=== PATIENT | female | born 2000 | race Caucasian/White ===

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

== ENCOUNTER → 2020-01-20 | Outpatient (CLI) | payer OTHER | END | disposition home or self-care (01) | LOC: LAB SHORT 13:18 → LAB EV 13:18 | DX: J03.90 Acute tonsillitis, unspecified (principal) | CPT/HCPCS: 87081 ==

== ENCOUNTER 2020-12-28 21:12 | Emergency (ER) | payer OTHER ==
[~2020-12-28] VITALS: Ht 160 cm; Wt 113.4 kg
[2020-12-29] MEDS ORDERED: ONDA4ODT MM (01:19)
== END 2020-12-29 01:40 | disposition home or self-care (01) ==
LOC: ER 21:12
DX: A08.4 Viral intestinal infection, unspecified (principal); J45.909 Unspecified asthma, uncomplicated; Z91.040 Latex allergy status; Z79.52 Long term (current) use of systemic steroids; Z79.899 Other long term (current) drug therapy; Z20.822 Contact with and (suspected) exposure to COVID-19
CPT/HCPCS: 99283; A9270

== ENCOUNTER 2021-07-09 20:17 | Emergency (ER) | payer SELFPAY ==
[~2021-07-09] VITALS: Ht 160 cm; Wt 127.0 kg
[~2021-07-09 20:17] MED LIST changes: +ONDA4ODT MM
== END 2021-07-09 20:30 | disposition home or self-care (01) ==
LOC: ER 20:17
DX: U07.1 COVID-19 (principal); Z91.040 Latex allergy status
CPT/HCPCS: 99283

== ENCOUNTER 2021-07-13 14:21 | Inpatient (IN) | payer SELFPAY ==
[~2021-07-13] VITALS: Ht 160 cm; Wt 127.0 kg
[2021-07-13 14:49] LABS: BASOPHILS ABSOLUTE AUTO 0.01 K/mm3 (0.00-0.23); BASOPHILS PERCENT AUTO 0 % (0-2); EOSINOPHILS PERCENT AUTO 0 % (0-6); Hematocrit 34.1 % (33.0-51.0); Hemoglobin 10.3 g/dL (11.5-16.0); IMMATURE GRAN ABSOLUTE AUTO 0.01 K/mm3 (0.00-0.10); IMMATURE GRAN PERCENT AUTO 0 % (0-1); LYMPHOCYTES ABSOLUTE AUTO 1.17 K/mm3 (0.84-5.20); LYMPHOCYTES PERCENT AUTO 21 % (21-46); MONOCYTES ABSOLUTE AUTO 0.26 K/mm3 (0.16-1.47); MONOCYTES PERCENT AUTO 5 % (4-13); Mean Corpuscular HGB 22.2 pg (26.0-34.0); Mean Corpuscular HGB Conc 30.2 g/dL (31.5-36.5); Mean Corpuscular Volume 74 fL (80-100); Mean Platelet Volume 9.9 fL (9.1-12.4); NEUTROPHILS ABSOLUTE AUTO 4.07 K/mm3 (1.96-9.15); NEUTROPHILS PERCENT AUTO 74 % (41-73); Platelet Count 239 K/mm3 (150-400); RDW Coefficient Variation 16.6 % (11.7-14.2); RDW Standard Deviation 43.8 fL (35.1-46.3); Red Blood Cell Count 4.63 M/mm3 (3.80-5.20); White Blood Cell Count 5.52 K/mm3 (4.00-11.30)
[2021-07-13 15:08] LABS: Alanine Aminotransfer (ALT/SGP 47 U/L (12-78); Albumin, Blood 2.6 g/dL (3.4-5.0); Albumin/Globulin Ratio 0.6 (0.8-1.8); Alk Phos 94 U/L (50-136); Anion Gap 8 mmol/L (6-16); Aspartate Aminotrans (AST/SGOT 37 U/L (12-37); Bilirubin, Total 0.1 mg/dL (0.1-1.0); Blood Urea Nitrogen 7 mg/dL (8-24); Bun/Creatinine Ratio 12.2 (12.0-20.0); CO2, Blood 24 mmol/L (21-32); Calcium, Blood 8.3 mg/dL (8.5-10.1); Chloride, Blood 106 mmol/L (98-108); Creatinine, Blood 0.57 mg/dL (0.40-1.00); Globulin, Blood 4.6 g/dL (2.2-4.0); Glomerular Filtration Rate >60 (60-); Glucose, Blood 133 mg/dL (70-99); Potassium, Blood 3.8 mmol/L (3.5-5.5); Sodium, Blood 138 mmol/L (136-145); Total Protein, Blood 7.2 g/dL (6.4-8.2); Troponin I <0.015 ng/mL (0.000-0.040)
--- NOTE | 2021-07-14 03:27 | NUR ---
SHIFT SUMMARY NO ACUTE CHANGES TO REPORT THIS SHIFT. PT CHANGE OF SHIFT ADMIT. COVID POSITIVE, SHE IS DOING WELL ON 4L O2, SOB WITH EXERTION. RESP E/U AT REST. NONPRODUCTIVE COGESTED COUGH. SHE REPORTS NO CHANGE IN APPETITIE AND DENIES N/V. SHE HAS BEEN INDEPENDENT IN THE ROOM, SLEPT MOST OF THE NIGHT. BED IN LOWEST POSITION, CALL LIGHT WITHIN REACH.
[2021-07-14 06:03] LABS: Hematocrit 36.2 % (33.0-51.0); Hemoglobin 10.7 g/dL (11.5-16.0); Mean Corpuscular HGB 22.2 pg (26.0-34.0); Mean Corpuscular HGB Conc 29.6 g/dL (31.5-36.5); Mean Corpuscular Volume 75 fL (80-100); Mean Platelet Volume 9.7 fL (9.1-12.4); Platelet Count 244 K/mm3 (150-400); RDW Coefficient Variation 16.4 % (11.7-14.2); RDW Standard Deviation 44.7 fL (35.1-46.3); Red Blood Cell Count 4.82 M/mm3 (3.80-5.20); White Blood Cell Count 2.98 K/mm3 (4.00-11.30)
[2021-07-14 06:25] LABS: Alanine Aminotransfer (ALT/SGP 45 U/L (12-78); Albumin, Blood 2.7 g/dL (3.4-5.0); Albumin/Globulin Ratio 0.5 (0.8-1.8); Alk Phos 93 U/L (50-136); Anion Gap 7 mmol/L (6-16); Aspartate Aminotrans (AST/SGOT 27 U/L (12-37); Bilirubin, Total 0.2 mg/dL (0.1-1.0); Blood Urea Nitrogen 8 mg/dL (8-24); Bun/Creatinine Ratio 17.2 (12.0-20.0); CO2, Blood 24 mmol/L (21-32); Calcium, Blood 8.4 mg/dL (8.5-10.1); Chloride, Blood 108 mmol/L (98-108); Creatinine, Blood 0.47 mg/dL (0.40-1.00); Glomerular Filtration Rate >60 (60-); Glucose, Blood 122 mg/dL (70-99); Potassium, Blood 4.1 mmol/L (3.5-5.5); Sodium, Blood 139 mmol/L (136-145); Total Protein, Blood 7.7 g/dL (6.4-8.2)
[2021-07-14 07:10] LABS: BAND PERCENT MAN 1 % (0-8); BASOPHILS PERCENT MAN 0 % (0-2); EOSINOPHILS PERCENT MAN 0 % (0-6); LYMPHOCYTES ABSOLUTE MAN 0.86 K/mm3 (0.84-5.20); LYMPHOCYTES PERCENT MAN 29 % (21-46); MONOCYTES ABSOLUTE MAN 0.05 K/mm3 (0.16-1.47); MONOCYTES PERCENT MAN 2 % (4-13); NEUTROPHILS ABSOLUTE MAN 2.05 K/mm3 (1.96-9.15); SEG NEUTROPHILS PERCENT MAN 68 % (41-73); TOTAL CELLS COUNTED 100
--- NOTE | 2021-07-14 14:51 | NUR ---
Spiritual Care visit conducted: I provided conversation and companionship, patient engaged well and verbalized appreciation and was amenable to me praying for her recovery.
--- NOTE | 2021-07-14 18:57 | NUR ---
SHIFT SUMMARY: PT A/O IND IN ROOM. PT HAS MILD COUGH, LS DIM, PT HAD TO TITRATE UP TO 10 LPM THIS MORNING. THIS EVENING TITRATED DOWN TO 4LPM VIA NC.
--- NOTE | 2021-07-15 08:16 | NUR ---
Shift Summary Remains stable on 4L oxygen. Dyspneic with exertion, otherwise, no acute changes. Calls appropriately.
--- NOTE | 2021-07-15 10:49 | NUR ---
HOME O2 EVAL... SIT AT BEDSIDE SATTING AT 93% ON RA. STOOD AT BEDSIDE SAT 93% ON RA. AMBULATING TO BATHROOM, DESAT TO 87% ON RA. 4L NEEDED TO GET PT BACK TO 92% WHILE AMBULATING.
[2021-07-15] MEDS ORDERED: ACET325 PO (15:12)
[2021-07-15] MEDS ORDERED: ALBU90OI INH (15:14)
[2021-07-15] MEDS ORDERED: ASCO500 PO (15:15)
[2021-07-15] MEDS ORDERED: DEXA6 PO (15:16)
[2021-07-15] MEDS ORDERED: DEXTROMETHORPHAN-GUA PO (15:18)
[2021-07-15] MEDS ORDERED: LOPE2C PO (15:18)
[2021-07-15] MEDS ORDERED: ONDA4ODT MM (15:19)
[2021-07-15] MEDS ORDERED: LACT PO (15:23)
[2021-07-15] MEDS ORDERED: VISBIOME 112.51 EACH PO (15:24)
[2021-07-15] MEDS ORDERED: ZINC220 PO (15:25)
[2021-07-15] MEDS ORDERED: THERA-D2000 UNIT PO (15:25)
[2021-07-15] MEDS ORDERED: OXYGEN INH (15:37)
--- NOTE | 2021-07-15 19:18 | NUR ---
PATIENT DISCHARGED TO HOME VIA PRIVATE CAR. NO IV SALINE LOCK PRESENT. VERBALIZED UNDERSTANDING OF D/C INSTRUCTIONS. HOME O2 TANK DELIVERED BY [facility]. OFF UNIT VIA W/C AT 1631. NO PERSONAL BELONGINGS LEFT BEHIND IN ROOM.
== END 2021-07-15 16:32 | disposition home or self-care (01) | DRG 177 ==
LOC: ER 14:21 → ERHOLD 16:07 → MEDS 16:07
PROVIDERS: Emergency Medicine; ADMIT Internal Medicine
PROC: 8E0ZXY6 Isolation (ICD-10-PCS; principal; 2021-07-13)
PROC: XW033E5 Introduction of Remdesivir Anti-infective into Peripheral Vein, Percutaneous Approach, New Technology Group 5 (ICD-10-PCS; 2021-07-13)
PROC: 3E0333Z Introduction of Anti-inflammatory into Peripheral Vein, Percutaneous Approach (ICD-10-PCS; 2021-07-13)
DX: U07.1 COVID-19 (principal); J96.01 Acute respiratory failure with hypoxia; J12.82 Pneumonia due to coronavirus disease 2019; Z68.42 Body mass index [BMI] 45.0-49.9, adult; J45.909 Unspecified asthma, uncomplicated; E66.9 Obesity, unspecified; R19.7 Diarrhea, unspecified; Z91.040 Latex allergy status
CPT/HCPCS: 36415; 71045; 80053; 84145; 84484; 85025; 85379; 87070; 87205; 93005; 93010; 94761; 94762; 96374; 96375; 99285-25; A9270; J1100; J1650; J1885

== ENCOUNTER 2023-09-22 05:59 | Emergency (ER) | payer OTHER ==
[~2023-09-22] VITALS: Ht 154.9 cm; Wt 111.1 kg
[~2023-09-22 05:59] MED LIST changes: +ACET325 PO; +ASCO500 PO; +CEPH500 PO; +DEXA6 PO; +DEXTROMETHORPHAN-GUA PO; +LACT PO; +LOPE2C PO; +OMEP20ER PO; +OXYGEN INH; +THERA-D2000 UNIT PO; +VISBIOME 112.51 EACH PO; +ZINC220 PO
[2023-09-22 07:07] LABS: Source, Urine Clean Catch
[2023-09-22 07:10] LABS: BASOPHILS ABSOLUTE AUTO 0.04 K/mm3 (0.00-0.23); BASOPHILS PERCENT AUTO 0 % (0-2); EOSINOPHILS ABSOLUTE AUTO 0.13 K/mm3 (0.00-0.68); EOSINOPHILS PERCENT AUTO 1 % (0-6); Hemoglobin 11.7 g/dL (11.5-16.0); IMMATURE GRAN ABSOLUTE AUTO 0.02 K/mm3 (0.00-0.10); IMMATURE GRAN PERCENT AUTO 0 % (0-1); LYMPHOCYTES ABSOLUTE AUTO 3.66 K/mm3 (0.84-5.20); LYMPHOCYTES PERCENT AUTO 37 % (21-46); MONOCYTES ABSOLUTE AUTO 0.64 K/mm3 (0.16-1.47); MONOCYTES PERCENT AUTO 7 % (4-13); Mean Corpuscular HGB Conc 30.8 g/dL (31.5-36.5); Mean Corpuscular Volume 81 fL (80-100); Mean Platelet Volume 9.3 fL (9.1-12.4); NEUTROPHILS ABSOLUTE AUTO 5.37 K/mm3 (1.96-9.15); NEUTROPHILS PERCENT AUTO 55 % (41-73); Platelet Count 360 K/mm3 (150-400); RDW Coefficient Variation 16.9 % (11.7-14.2); RDW Standard Deviation 49.4 fL (35.1-46.3); Red Blood Cell Count 4.68 M/mm3 (3.80-5.20); White Blood Cell Count 9.86 K/mm3 (4.00-11.30)
[2023-09-22 07:10] LABS: Appearance, Urine Hazy (Clear); Bilirubin, Urine Neg (Neg); Blood, Urine 5+ (Neg); Color, Urine Yellow (P-Yellow); Glucose Qualitative, Urine Neg (Neg); Ketones, Urine Neg (Neg); Leukocyte Esterase, Urine 2+ (Neg); Nitrite, Urine Neg (Neg); Protein, Urine 2+ (Neg); Specific Gravity, Urine 1.015 (1.003-1.022); Urobilinogen, Urine NORM (Normal)
[2023-09-22 07:18] LABS: Amorphous Mod (0-Heavy); Bacteria Few /hpf; Mucus Light (0-Heavy); Squamous Epithelial Cells Many /hpf (Few)
[2023-09-22 07:28] LABS: Albumin, Blood 3.1 g/dL (3.4-5.0); Albumin/Globulin Ratio 0.7 (0.8-1.8); Bilirubin, Total 0.1 mg/dL (0.1-1.0); Bun/Creatinine Ratio 17.3 (12.0-20.0); Calcium, Blood 8.6 mg/dL (8.5-10.1); Creatinine, Blood 0.75 mg/dL (0.40-1.00); Globulin, Blood 4.4 g/dL (2.2-4.0); Potassium, Blood 4.1 mmol/L (3.5-5.5); Total Protein, Blood 7.5 g/dL (6.4-8.2)
[2023-09-22 09:30] VITALS: BP 142/76
[2023-09-22] MEDS ORDERED: ONDA4ODT MM (09:30)
[2023-09-22] MEDS ORDERED: OMEP20ER PO (09:30)
== END 2023-09-22 09:45 | disposition home or self-care (01) ==
LOC: ER 05:59
PROVIDERS: Emergency Medicine
DX: R10.13 Epigastric pain (principal); K80.20 Calculus of gallbladder without cholecystitis without obstruction; K21.9 Gastro-esophageal reflux disease without esophagitis; J45.909 Unspecified asthma, uncomplicated; Z91.040 Latex allergy status; Z79.899 Other long term (current) drug therapy
CPT/HCPCS: 76705; 80053; 81001; 83690; 84703; 85025; 87086; 96374; 96375; 99284-25; J0780; J2270; J2405

== ENCOUNTER 2024-06-13 17:27 | Emergency (ER) | payer OTHER ==
[~2024-06-13] VITALS: Ht 157.5 cm; Wt 117.9 kg
[2024-06-13 17:37] VITALS: BP 159/80
[2024-06-13 17:55] LABS: Source, Urine Clean Catch
[2024-06-13 17:59] LABS: Appearance, Urine Cloudy (Clear); Bilirubin, Urine Neg (Neg); Blood, Urine 4+ (Neg); Color, Urine Amber (P-Yellow); Glucose Qualitative, Urine Neg (Neg); Ketones, Urine Neg (Neg); Leukocyte Esterase, Urine 3+ (Neg); Nitrite, Urine Neg (Neg); Protein, Urine 3+ (Neg); Specific Gravity, Urine 1.025 (1.003-1.022); Urobilinogen, Urine 1+ (Normal)
[2024-06-13 18:28] LABS: Bacteria Many /hpf; Renal Epithelial Rare /hpf (0-Rare); Squamous Epithelial Cells Many /hpf (Few); White Blood Cells, Urine 50-100 /hpf (0-5)
[2024-06-13 18:29] LABS: Yeast/Fungi Urine Rare /hpf
[2024-06-13] MEDS ORDERED: VALA500 PO (19:14)
[2024-06-13] MEDS ORDERED: Pyridium100 MG PO (19:15)
[2024-06-13] MEDS ORDERED: ValACYClovir HCL 500 MG Tab PO SCH (21:00)
== END 2024-06-13 19:27 | disposition home or self-care (01) ==
LOC: ER 17:27
PROVIDERS: Physician Assistant
DX: B00.9 Herpesviral infection, unspecified (principal); J45.909 Unspecified asthma, uncomplicated; Z79.899 Other long term (current) drug therapy; Z91.040 Latex allergy status
CPT/HCPCS: 81001; 81025; A9270